=== PATIENT | female | born 1955 | race Caucasian/White ===

== ENCOUNTER 2016-09-29 08:37 | Outpatient (CLI) | payer BC, OTHER | END 2016-09-29 08:38 | DX: Z00.00 Encounter for general adult medical examination without abnormal findings (principal); E55.9 Vitamin D deficiency, unspecified; Z79.899 Other long term (current) drug therapy ==

== ENCOUNTER 2017-03-12 12:06 | Outpatient (CLI) | payer BC, OTHER ==
--- NOTE | 2017-03-15 12:38 | MRI Report ---
EXAM: RIGHT KNEE MRI WITHOUT CONTRAST EXAM DATE: 03/12/2017 01:08 PM. CLINICAL HISTORY: Right knee pain. COMPARISON: None. TECHNIQUE: Multiplanar, multisequence T1-weighted and fluid-sensitive sequences of the knee without c ontrast. Other: None. FINDINGS: Bones and articular cartilage: Tiny marginal osteophytes of the femoral condyles, lateral tibial plat eau, and patella. Marrow edema at the medial femoral condyle. There is an approximately 1.1 x 0.5 cm full-thickness articular cartilage defect at the central weightbearing aspect of the medial femoral c ondyle. There is grade 2 chondromalacia at the medial tibial plateau. Grade 2 chondromalacia at the l ateral compartment. Grade 3-4 chondromalacia at the medial ridge and medial facet of patella. Marrow edema at the lateral patellar facet. Grade 2 chondromalacia femoral trochlea. No subluxations. There is a 1.3 x 1.5 x 1 cm lobular intramedullary lesion at the medial aspect of the distal femoral metaph ysis. The lesion is mostly hyperintense on the T2-weighted images and mostly hypointense on the T1-we ighted images. Centrally, there are punctate hypointense foci. No surrounding marrow edema. Medial Meniscus: There is a vertically oriented radial oblique tear at the lateral aspect of the post erior horn. Lateral Meniscus: The lateral meniscus is intact. Cruciate Ligaments: The anterior and posterior cruciate ligaments are intact. Collateral Ligaments: The medial collateral and lateral collateral ligamentous structures are intact. Tendons: The quadriceps, patellar, semimembranosus, and popliteus tendons are unremarkable. Musculature: No edema or fatty atrophy. Other: Small joint effusion. Small Marie's cyst, which appears partially ruptured. There is an approx imately 1.2 x 1 x 0.6 cm loose body within the posterior lateral aspect of the medial joint compartme nt. The medial and lateral retinacula are intact. The subcutaneous tissues and fat pads are unremark able. IMPRESSION: 1. Tricompartmental chondromalacia. There is a full-thickness articular cartilage defect at the centr al weightbearing aspect of the medial femoral condyle. Marrow edema medial femoral condyle, which may represent stress reaction or bone contusion. 2. Vertically oriented radial oblique tear at the lateral aspect of the posterior horn. 3. Small joint effusion and Marie's cyst, which is partially ruptured. 4. A 1.2 x 1 x 0.6 cm loose body within the posterior lateral aspect of the medial joint compartment. [facility] MUSCULOSKELETAL RADIOLOGY SECTION Referring Provider Line: [phone] SITE ID: [id number]
== END 2017-03-12 12:07 | disposition home or self-care (01) ==
LOC: DI 12:06
PROVIDERS: ATTEND Physician Assistant Medical
DX: M94.261 Chondromalacia, right knee (principal); S83.241A Other tear of medial meniscus, current injury, right knee, initial encounter; M66.0 Rupture of popliteal cyst; M25.461 Effusion, right knee; M23.41 Loose body in knee, right knee

== ENCOUNTER 2017-05-12 08:26 | Outpatient (CLI) | payer BC, OTHER ==
--- NOTE | 2017-05-14 08:31 | Mammography Report ---
BILATERAL DIGITAL SCREENING MAMMOGRAM: 05/12/2017 CLINICAL INDICATION: A 62-year-old for screening. COMPARISON: 04/2016, 04/2015, 02/2014, 02/2013, 02/2012, 02/2011, 03/2010. TECHNIQUE: Routine CC and MLO projections were obtained of the breasts. FINDINGS: Parenchymal tissue within the breasts is predominantly fatty replaced. There are no dominant masses, suspicious microcalcifications, or secondary signs of malignancy. In comparison to the previous studies, there are no significant changes. IMPRESSION: NO MAMMOGRAPHIC EVIDENCE OF MALIGNANCY. NO SIGNIFICANT INTERVAL CHANGES. RECOMMENDATION: Screening mammography is recommended annually. BIRADS category 1 - negative. STANDARD QUALIFYING STATEMENTS 1. This examination was reviewed with the aid of Computed Aided Detection (CAD). 2. A negative x-ray report should not delay biopsy if a dominant or clinically suspicious mass is present. More than 5% of cancers are not identified by x-ray. 3. Dense breasts may obscure an underlying neoplasm. zoey 05/15/17 TD: 05/13/2017 21:07 WANDA
== END 2017-05-12 08:27 | disposition home or self-care (01) ==
LOC: DI 08:26
PROVIDERS: ATTEND Physician Assistant Medical
DX: Z12.31 Encounter for screening mammogram for malignant neoplasm of breast (principal)
CPT/HCPCS: 77067

== ENCOUNTER 2017-10-14 08:00 | Outpatient (CLI) | payer BC, OTHER ==
[2017-10-14 13:47] LABS: BASOPHILS % (AUTO) 0.8 %; EOSINOPHILS # (AUTO) 0.1 10^3/uL (0.0-0.7); EOSINOPHILS % (AUTO) 2.7 %; HGB - HEMOGLOBIN 13.3 g/dL (12.0-16.0); LYMPHOCYTES # (AUTO) 1.5 10^3/uL (1.5-3.5); LYMPHOCYTES % (AUTO) 29.9 %; MEAN CORPUSCULAR HEMOGLOBIN 32.2 pg (27.0-31.0); MEAN CORPUSCULAR HGB CONC 33.7 g/dL (32.0-36.0); MEAN CORPUSCULAR VOLUME 95.6 fL (81.0-99.0); MEAN PLATELET VOLUME 8.6 fL (7.9-10.8); MONOCYTES # (AUTO) 0.4 10^3/uL (0.0-1.0); MONOCYTES % (AUTO) 8.9 %; NEUTROPHILS # (AUTO) 2.9 10^3/uL (1.5-6.6); NEUTROPHILS % (AUTO) 57.7 %; PLT - PLATELET COUNT 316 10^3/uL (130-450); RED BLOOD COUNT 4.14 10^6/uL (4.20-5.40); RED CELL DISTRIBUTION WIDTH 12.7 % (12.0-15.0)
[2017-10-14 13:52] LABS: ALBUMIN 4.1 g/dL (3.2-5.5); ALBUMIN/GLOBULIN RATIO 1.4 (1.0-2.2); ALKALINE PHOSPHATASE 52 IU/L (42-121); ALT ALANINE AMINOTRANSFERASE 14 IU/L (10-60); AST ASPARTATE AMINOTRANSFERASE 19 IU/L (10-42); BILIRUBIN,TOTAL 0.8 mg/dL (0.2-1.0); BUN - BLOOD UREA NITROGEN 11 mg/dL (6-20); CALCIUM 8.7 mg/dL (8.5-10.3); CARBON DIOXIDE - CO2 23 mmol/L (21-32); CHLORIDE 105 mmol/L (101-111); CHOL/HDL RATIO 4.3 (<4.4); CHOLESTEROL 234 mg/dL; CREATININE 0.6 mg/dL (0.4-1.0); GFR - MDRD 101 (>89); GLUCOSE 97 mg/dL (70-100); HDL CHOLESTEROL 55 mg/dL; LDL CHOLESTEROL,CALCULATED 157 mg/dL; LDL/HDL RATIO 2.9 (<4.4); SODIUM 135 mmol/L (135-145); VLDL CHOLESTEROL 22 mg/dL
[2017-10-15 18:57] LABS: HEPATITIS C ANTIBODY NON-REACTIVE (NON-REACTIVE)
== END 2017-10-14 08:01 | disposition home or self-care (01) ==
LOC: LAB.N 08:00
PROVIDERS: ATTEND Physician Assistant Medical
DX: E55.9 Vitamin D deficiency, unspecified (principal); Z79.899 Other long term (current) drug therapy; Z13.818 Encounter for screening for other digestive system disorders; Z00.00 Encounter for general adult medical examination without abnormal findings; E78.2 Mixed hyperlipidemia
CPT/HCPCS: 36415; 80053; 80061; 82306; 83721; 84443; 85025; 86803

== ENCOUNTER 2018-05-20 14:49 | Outpatient (CLI) | payer BC, OTHER ==
--- NOTE | 2018-05-23 09:34 | DEXA Report ---
Reason: POSTMENOPAUSAL Procedure Date: 05/20/2018 Accession Number: [id number] / [id number] Procedure: DEX - Dexa Spine and/or Hip CPT Code: FULL RESULT: EXAM: Dexa Spine and/or Hip DATE: 05/20/2018 3:35 PM CLINICAL HISTORY: POSTMENOPAUSAL TECHNIQUE: Dual energy x-ray absorptiometry (DXA) was performed on a [employer] System. Regions measured are the AP Spine, femoral neck, and if needed forearm. COMPARISON: None. In accordance with the International Society for Clinical Densitometry (ISCD) guidelines, data from previous exams may be reanalyzed using current recommendations and techniques. This is done to allow a more accurate basis for comparison with the current study. FINDINGS: The data for the lumbar spine is as follows: BMD (g/cm/cm) T-SCORE Z-SCORE REGION L1 1.037 -0.8 0.0 L2 0.993 -1.7 -1.0 L3 1.027 -1.4 -0.7 L4 1.077 -1.0 -0.3 TOTAL 1.037 -1.2 -0.5 NOTE: All evaluable vertebrae are used for classification The data for the hip is as follows: BMD (g/cm/cm) T-SCORE Z-SCORE REGION Neck 0.979 -0.4 0.5 TOTAL 1.006 0.0 0.6 NOTE: The femoral neck or total proximal femur, whichever is lowest, is used for classification. IMPRESSION: THE WHO CLASSIFICATION BASED ON THE INTERNATIONAL REFERENCE STANDARD IS OSTEOPENIA. THE FRACTURE RISK IS INCREASED. RECOMMENDATION: Patients with diagnosis of osteoporosis or osteopenia should have regular bone mineral density assessment. For those eligible for Medicare, routine testing is allowed once every 2 years. Testing frequency can be increased for patients who have rapidly progressing disease or for those who are receiving medical therapy to restore bone mass. COMMENT: World Health Organization (WHO) definitions for osteoporosis and osteopenia: NORMAL BMD: T-score at -1.0 or higher, fracture risk is low OSTEOPENIA BMD: T-score between -1.0 and -2.5, fracture risk is increased. OSTEOPOROSIS BMD: T-score at -2.5 or lower, fracture risk is high. National Osteoporosis Foundation recommends: 1. Obtain adequate dietary calcium (at least 1200 mg per day) and vitamin D (400-800 international units per day). 2. Participate, as appropriate, in regular weightbearing and muscle-strengthening exercise. 3. Avoid tobacco use and reduce alcohol and caffeine intake. 4. For more detailed information see the website at www.NOF.org.
== END 2018-05-20 14:50 | disposition home or self-care (01) ==
LOC: DI 14:49
PROVIDERS: ATTEND Physician Assistant Medical
DX: M85.88 Other specified disorders of bone density and structure, other site (principal)
CPT/HCPCS: 77080

== ENCOUNTER 2018-05-20 14:51 | Outpatient (CLI) | payer BC, OTHER ==
--- NOTE | 2018-05-23 08:21 | Mammography Report ---
Reason: MAMMORGRAM,SCREENING Procedure Date: 05/20/2018 Accession Number: [id number] / [id number] Procedure: DIMAS - Screening Mammo w/Clarence CPT Code: FULL RESULT: EXAM: Screening Mammo w/Clarence DATE: 05/20/2018 3:43 PM CLINICAL HISTORY: Screening encounter. No reported risk factors. TECHNIQUE: Bilateral CC and MLO views were obtained. A left laterally exaggerated view was obtained. COMPARISON: 05/12/2017 through 03/15/2014. FINDINGS: The breasts demonstrate diffuse fatty replacement bilaterally. No suspicious masses, clustered microcalcifications, or regions of architectural distortion are identified. IMPRESSION: Negative examination RECOMMENDATION: Routine annual screening unless otherwise clinically indicated. BIRADS CATEGORY 1: Negative STANDARD QUALIFYING STATEMENTS: 1. This examination was not reviewed with the aid of Computer-Aided Detection (CAD). 2. A negative or benign imaging report should not preclude biopsy if clinically suspicious findings are present. 3. Dense breasts may obscure an underlying neoplasm. 4. This examination was reviewed with the aid of 3D breast imaging (tomosynthesis).
== END 2018-05-20 14:52 | disposition home or self-care (01) ==
LOC: DI 14:51
PROVIDERS: ATTEND Physician Assistant Medical
DX: Z12.31 Encounter for screening mammogram for malignant neoplasm of breast (principal)
CPT/HCPCS: 77063; 77067

== ENCOUNTER 2018-06-28 08:00 | Outpatient (CLI) | payer BC, OTHER ==
[2018-06-28 13:20] LABS: CHOL/HDL RATIO 4.8 (<4.4); CHOLESTEROL 257 mg/dL; HDL CHOLESTEROL 54 mg/dL; LDL CHOLESTEROL,CALCULATED 175 mg/dL; LDL/HDL RATIO 3.2 (<4.4); VLDL CHOLESTEROL 28 mg/dL
== END 2018-06-28 23:59 | disposition home or self-care (01) ==
LOC: LAB.R 08:00
PROVIDERS: ATTEND Physician Assistant Medical
DX: E78.2 Mixed hyperlipidemia (principal); Z79.899 Other long term (current) drug therapy
CPT/HCPCS: 80061; 83721

== ENCOUNTER 2018-10-03 08:00 | Outpatient (CLI) | payer BC, OTHER | END 2018-10-03 23:59 | disposition home or self-care (01) | LOC: LAB.R 08:00 | PROVIDERS: ATTEND Family Medicine | DX: N39.0 Urinary tract infection, site not specified (principal) | CPT/HCPCS: 87086; 87181 ==

== ENCOUNTER 2019-06-30 07:53 | Outpatient (CLI) | payer MEDICARE, BC, OTHER ==
--- NOTE | 2019-07-11 13:46 | Mammography Report ---
Reason: ROUTINE MAMMO Procedure Date: 06/30/2019 Accession Number: [id number] / [id number] Procedure: DIMAS - Screening Mammo w/Clarence CPT Code: Final Report FULL RESULT: EXAM: Screening Mammo w/Clarence DATE: 06/30/2019 9:00 AM CLINICAL HISTORY: Screening encounter. History of early menses. TECHNIQUE: (B) - Bilateral CC and MLO views were obtained. COMPARISON: 05/12/2018 through 04/21/2010. PARENCHYMAL PATTERN: (F) - The breast(s) demonstrate(s) diffuse fatty replacement. FINDINGS: There are no suspicious masses, calcifications, or areas of distortion. IMPRESSION: Negative examination. BI-RADS category 1. RECOMMENDATION: (ANNUAL) - Recommend routine annual screening mammography. BI-RADS CATEGORY: (1) - Negative. STANDARD QUALIFYING STATEMENTS: 1. This examination was not reviewed with the aid of Computer-Aided Detection (CAD). 2. A negative or benign imaging report should not preclude biopsy if clinically suspicious findings are present. 3. Dense breasts may obscure an underlying neoplasm. 4. This examination was reviewed with the aid of 3D breast imaging (tomosynthesis).
== END 2019-06-30 07:54 | disposition home or self-care (01) ==
LOC: DI 07:53
DX: Z12.31 Encounter for screening mammogram for malignant neoplasm of breast (principal)
CPT/HCPCS: 77063; 77067

== ENCOUNTER 2019-06-30 07:54 | Outpatient (CLI) | payer MEDICARE, BC, OTHER ==
--- NOTE | 2019-07-11 12:07 | DEXA Report ---
Reason: OSTEOPENIA Procedure Date: 06/30/2019 Accession Number: [id number] / [id number] Procedure: DEX - Dexa Spine and/or Hip CPT Code: Final Report FULL RESULT: EXAM: Dexa Spine and/or Hip DATE: 06/30/2019 8:33 AM CLINICAL HISTORY: OSTEOPENIA TECHNIQUE: Dual energy x-ray absorptiometry (DXA) was performed on a [employer] System. Regions measured are the AP Spine, femoral neck, and if needed forearm. COMPARISON: 05/12/2018. In accordance with the International Society for Clinical Densitometry (ISCD) guidelines, data from previous exams may be reanalyzed using current recommendations and techniques. This is done to allow a more accurate basis for comparison with the current study. FINDINGS: The data for the lumbar spine is as follows: BMD (g/cm/cm) T-SCORE Z-SCORE REGION L1 0.988 -1.2 -0.4 L2 0.930 -2.2 -1.4 L3 1.019 -1.5 -0.7 L4 0.937 -2.2 -1.4 TOTAL 0.966 -1.8 -1.0 NOTE: All evaluable vertebrae are used for classification The data for the hip is as follows: BMD (g/cm/cm) T-SCORE Z-SCORE REGION Neck 0.940 -0.7 0.3 TOTAL 1.015 0.1 0.7 NOTE: The femoral neck or total proximal femur, whichever is lowest, is used for classification. DXA RESULTS SUMMARY: Spine SCAN DATE AGE BMD CHANGE VS CHANGE VS PREVIOUS PREVIOUS % 5/30/2019 [age] 0.960 -0.078* -7.5* 05/20/2018 64.1 1.038 * Denotes significant change at the 95% confidence level. Denotes dissimilar scan types or analysis methods. DXA RESULTS SUMMARY: Hip SCAN DATE AGE BMD CHANGE VS CHANGE VS PREVIOUS PREVIOUS % 5/30/2019 65.2 1.015 0.009 0.9 05/20/2018 63.1 1.006 * Denotes significant change at the 95% confidence level. Denotes dissimilar scan types or analysis methods. IMPRESSION: THE WHO CLASSIFICATION BASED ON THE INTERNATIONAL REFERENCE STANDARD IS OSTEOPENIA. THE FRACTURE RISK IS INCREASED. Interval decrease in bone density in the lumbar spine is statistically significant. RECOMMENDATION: Patients with diagnosis of osteoporosis or osteopenia should have regular bone mineral density assessment. For those eligible for Medicare, routine testing is allowed once every 2 years. Testing frequency can be increased for patients who have rapidly progressing disease or for those who are receiving medical therapy to restore bone mass. COMMENT: World Health Organization (WHO) definitions for osteoporosis and osteopenia: NORMAL BMD: T-score at -1.0 or higher, fracture risk is low OSTEOPENIA BMD: T-score between -1.0 and -2.5, fracture risk is increased. OSTEOPOROSIS BMD: T-score at -2.5 or lower, fracture risk is high. National Osteoporosis Foundation recommends: 1. Obtain adequate dietary calcium (at least 1200 mg per day) and vitamin D (400-800 international units per day). 2. Participate, as appropriate, in regular weightbearing and muscle-strengthening exercise. 3. Avoid tobacco use and reduce alcohol and caffeine intake. 4. For more detailed information see the website at www.NOF.org.
== END 2019-06-30 07:55 | disposition home or self-care (01) ==
LOC: DI 07:54
PROVIDERS: ATTEND Family Medicine
DX: M85.88 Other specified disorders of bone density and structure, other site (principal)
CPT/HCPCS: 77080

== ENCOUNTER 2019-07-03 08:53 | Outpatient (CLI) | payer MEDICARE, BC, OTHER ==
[2019-07-03 11:44] LABS: BASOPHILS % (AUTO) 0.7 %; EOSINOPHILS # (AUTO) 0.1 10^3/uL (0.0-0.7); EOSINOPHILS % (AUTO) 2.7 %; HGB - HEMOGLOBIN 13.3 g/dL (12.0-16.0); LYMPHOCYTES # (AUTO) 1.4 10^3/uL (1.5-3.5); LYMPHOCYTES % (AUTO) 32.8 %; MEAN CORPUSCULAR HGB CONC 32.6 g/dL (32.0-36.0); MEAN CORPUSCULAR VOLUME 98.1 fL (81.0-99.0); MONOCYTES # (AUTO) 0.3 10^3/uL (0.0-1.0); MONOCYTES % (AUTO) 7.3 %; NEUTROPHILS # (AUTO) 2.5 10^3/uL (1.5-6.6); NEUTROPHILS % (AUTO) 56.3 %; PLT - PLATELET COUNT 356 10^3/uL (130-450); RED BLOOD COUNT 4.16 10^6/uL (4.20-5.40); RED CELL DISTRIBUTION WIDTH 13.1 % (12.0-15.0); WHITE BLOOD COUNT 4.4 x10^3/uL (4.8-10.8)
[2019-07-03 12:28] LABS: ALBUMIN 4.1 g/dL (3.2-5.5); ALBUMIN/GLOBULIN RATIO 1.3 (1.0-2.2); ALKALINE PHOSPHATASE 50 IU/L (42-121); ALT ALANINE AMINOTRANSFERASE 17 IU/L (10-60); AST ASPARTATE AMINOTRANSFERASE 23 IU/L (10-42); BILIRUBIN,TOTAL 0.6 mg/dL (0.2-1.0); BUN - BLOOD UREA NITROGEN 13 mg/dL (6-20); CALCIUM 8.9 mg/dL (8.5-10.3); CARBON DIOXIDE - CO2 26 mmol/L (21-32); CHLORIDE 105 mmol/L (101-111); CHOL/HDL RATIO 3.2 (<4.4); CHOLESTEROL 240 mg/dL; CREATININE 0.6 mg/dL (0.4-1.0); GFR - MDRD 100 (>89); GLUCOSE 95 mg/dL (70-100); HDL CHOLESTEROL 74 mg/dL; LDL CHOLESTEROL,CALCULATED 153 mg/dL; LDL/HDL RATIO 2.1 (<4.4); SODIUM 138 mmol/L (135-145); TOTAL PROTEIN 7.3 g/dL (6.7-8.2); VLDL CHOLESTEROL 13 mg/dL
== END 2019-07-03 23:59 | disposition home or self-care (01) ==
LOC: LAB.N 08:53
PROVIDERS: ATTEND Family Medicine
DX: E55.9 Vitamin D deficiency, unspecified (principal); M85.80 Other specified disorders of bone density and structure, unspecified site; E78.2 Mixed hyperlipidemia; M17.9 Osteoarthritis of knee, unspecified
CPT/HCPCS: 36415; 80053; 80061; 83721; 84443; 85025

== ENCOUNTER 2020-06-14 10:45 | Emergency (ER) | payer MEDICARE, BC, OTHER ==
--- NOTE | 2020-06-14 13:24 | ED Physician Documentation ---
PD HPI HEADACHE - Stated complaint Stated Complaint: HEAD PX - Chief complaint Chief Complaint: Neuro - History obtained from History obtained from: Patient - History of Present Illness Timing - onset: Today Timing - onset during: Light activity (was sitting eating breakfast and had onset left temporal area headache. Had had mild bump on forehead yesterday when struck forehead on tailgate of car(?). No pain at that time. NO recent sinus drainage. NO focal weaknesses. NO visual changes. NO nausea.) Timing - details: Abrupt onset, Still present Worst headache ever?: No: Worst headache ever? Location: Left Quality: Throbbing, Aching Associated symptoms: No: Fever, Stiff neck, Nausea, Eye pain, Vision changes Improved by: No: Dark room Worsened by: No: Light, Noise Contributing factors: Trauma (bumped forehead lightly yesterday). No: Anticoagulated, Possible carbon monoxide, Hypertension, Recent illness Similar symptoms before: Has not had sx before Review of Systems Constitutional: denies: Fever, Chills Eyes: denies: Decreased vision, Photophobia Nose: denies: Rhinorrhea / runny nose, Congestion Throat: denies: Sore throat Respiratory: denies: Cough GI: reports: Nausea. 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 HEENT: Tonsil/Adenoidectomy - Allergies Allergies/Adverse Reactions: Allergies Allergy/AdvReac Type Severity Reaction Status Date / Time chlorhexidine gluconate * Allergy Rash Verified 06/14/20 10:48 [From Jaymie] PD ED PE NORMAL - Vitals Vital signs reviewed: Yes - General General: Alert and oriented X 3, No acute distress, Well developed/nourished - HEENT HEENT: PERRL, EOMI, Ears normal, Moist mucous membranes, Pharynx benign - Neck Neck: Supple, no meningeal sign, No bony TTP, No adenopathy - Cardiac Cardiac: RRR, No murmur - Respiratory Respiratory: Clear bilaterally - Derm Derm: Normal color, Warm and dry - Neuro Neuro: Alert and oriented X 3, No motor deficit, Normal speech Eye Opening: Spontaneous Motor: Obeys Commands Verbal: Oriented GCS Score: 15 Results - Vitals Vitals: Vital Signs - 24 hr 06/14/20 06/14/20 10:48 14:50 Temperature 36.8 C 36.9 C Heart Rate 64 60 Respiratory 18 20 Rate Blood Pressure 156/88 H 158/91 H O2 Saturation 100 100 Oxygen O2 Source Room air - Labs Labs: Laboratory Tests 06/14/20 06/14/20 06/14/20 14:03 14:03 14:03 WBC 6.7 RBC 4.29 Hgb 13.6 Hct 42.3 MCV 98.6 MCH 31.7 H MCHC 32.2 RDW 12.2 Plt Count 322 MPV 9.3 Neut # (Auto) 4.4 Lymph # (Auto) 1.7 [place] # (Auto) 0.3 Eos # (Auto) 0.1 Baso # (Auto) 0.0 Absolute Nucleated RBC 0.00 Nucleated RBC % 0.0 ESR 13 Sodium 137 Potassium 3.6 Chloride 102 Carbon Dioxide 24 Anion Gap 11.0 BUN 15 Creatinine 0.6 Estimated GFR (MDRD) 100 Glucose 90 Calcium 9.0 - Rads (name of study) head CT Radiology: Prelim report reviewed (no acute process), See rad report PD MEDICAL DECISION MAKING - ED course Complexity details: considered differential (had struck head mildly the day prior, and now left headache this morning. COnsider mild concussive, sinus pressure, bleed, or coincidental inflammatory. No history of migraines. ), d/w patient Departure - Departure Disposition: Home, Self Care Clinical Impression: Left-sided headache Head contusion Qualifiers: Encounter type: initial encounter Contusion of head detail: scalp Qualified Code(s): S00.03XA - Contusion of scalp, initial encounter Condition: Stable Record reviewed to determine appropriate education?: Yes Instructions: ED Cephalgia Unspecified Follow-Up: Jaguar Mckinnon MD [Primary Care Provider] - Comments: Your head CT is normal without any signs of bleeding, skull fracture, swelling or masses. Your blood count and inflammation markers are normal to without any signs of a obvious inflammatory immune cause. This may be a mild postconcussive headache from the bump yesterday. Otherwise it may be functional headache or sinus. I would suggest using some anti-inflammatory such as ibuprofen or naproxen to 3 times daily for the next several days and add Tylenol if needed for pains. Recheck if not improved over the next several days and return if other symptoms develop with it. Discharge Date/Time: 06/14/20 14:55
[2020-06-14] MEDS ORDERED: ACETAMINOPHEN 325 MG TABLET PO STA (13:50)
[2020-06-14] MEDS ORDERED: IBUPROFEN 600 MG TABLET PO STA (13:50)
[2020-06-14 14:12] LABS: BASOPHILS % (AUTO) 0.5 %; EOSINOPHILS # (AUTO) 0.1 10^3/uL (0.0-0.7); EOSINOPHILS % (AUTO) 1.7 %; HGB - HEMOGLOBIN 13.6 g/dL (12.0-16.0); LYMPHOCYTES # (AUTO) 1.7 10^3/uL (1.5-3.5); LYMPHOCYTES % (AUTO) 26.2 %; MEAN CORPUSCULAR HEMOGLOBIN 31.7 pg (27.0-31.0); MEAN CORPUSCULAR HGB CONC 32.2 g/dL (32.0-36.0); MEAN CORPUSCULAR VOLUME 98.6 fL (81.0-99.0); MEAN PLATELET VOLUME 9.3 fL (7.9-10.8); MONOCYTES # (AUTO) 0.3 10^3/uL (0.0-1.0); MONOCYTES % (AUTO) 5.1 %; NEUTROPHILS # (AUTO) 4.4 10^3/uL (1.5-6.6); NEUTROPHILS % (AUTO) 66.3 %; PLT - PLATELET COUNT 322 10^3/uL (130-450); RED BLOOD COUNT 4.29 10^6/uL (4.20-5.40); RED CELL DISTRIBUTION WIDTH 12.2 % (12.0-15.0); WHITE BLOOD COUNT 6.7 x10^3/uL (4.8-10.8)
[2020-06-14 14:19] LABS: CREATININE 0.6 mg/dL (0.4-1.0)
--- NOTE | 2020-06-14 14:38 | CT Report ---
PROCEDURE: HEAD WO INDICATIONS: left headache onset today TECHNIQUE: Noncontrast 4.5 mm thick angled axial sections acquired from the foramen magnum to the vertex. For r adiation dose reduction, the following was used: automated exposure control, adjustment of mA and/or kV according to patient size. COMPARISON: None. FINDINGS: Image quality: Excellent. CSF spaces: Basal cisterns are patent. No extra-axial fluid collections. Ventricles are normal in size and shape. Brain: No midline shift. No intracranial masses or hemorrhage. Cristina-white matter interface is norm al. Skull and face: Calvarium and visualized facial bones are intact, without suspicious lesions. Sinuses: Visualized sinuses and mastoids are clear. IMPRESSION: No acute intracranial disease process. Reviewed by: Phyllis Colin MD, PhD on 06/14/2020 1:37 PM [facility] Approved by: Phyllis Colin MD, PhD on 06/14/2020 1:37 PM [facility] Station ID: [id number]
[2020-06-14 14:51] VITALS: BP 158/91
== END 2020-06-14 14:55 | disposition home or self-care (01) ==
LOC: ED 10:45
DX: S00.03XA Contusion of scalp, initial encounter (principal); Y29.XXXA Contact with blunt object, undetermined intent, initial encounter
CPT/HCPCS: 36415; 70450; 80048; 85025; 85651; 99284; A9270

== ENCOUNTER 2020-07-16 08:53 | Outpatient (CLI) | payer MEDICARE, BC, OTHER ==
--- NOTE | 2020-07-16 12:44 | Mammography Report ---
BILATERAL DIGITAL SCREENING MAMMOGRAM 3D/2D: 07/16/2020 CLINICAL: Routine screening. Comparison is made to exams dated: 06/30/2019 mammogram, 05/20/2018 mammogram, 05/12/2017 mammogram, 1 07/14/2015 mammogram, 05/08/2015 mammogram, and 03/15/2014 mammogram - [facility]. The tissue of both breasts is predominantly fatty. There is a stable benign focal asymmetry in the right breast. No significant masses, calcifications, or other findings are seen in either breast. There has been no significant interval change. IMPRESSION: BENIGN There is no mammographic evidence of malignancy. A 1 year screening mammogram is recommended. This exam was interpreted at Station ID: [id number]. NOTE: For mammograms, a report in lay terms will be sent to the patient. Approximately 15% of breast malignancies will not be visualized mammographically. In the management of a palpable breast mass, a negative mammogram must not discourage biopsy of a clinically suspicious lesion. Electronically Signed By: Lakhwinder Pickens acr/penrad:07/16/2020 10:06:10 ACR BI-RADS Category 2: Benign Finding(s) 3342F PARENCHYMAL PATTERN: (F) - The breast(s) demonstrate(s) diffuse fatty replacement. BI-RADS CATEGORY: (2) - 2 RECOMMENDATION: (ANNUAL) - Recommend routine annual screening mammography. [id number] 1 year screening LATERALITY: (B)
== END 2020-07-16 08:54 | disposition home or self-care (01) ==
LOC: DI.N 08:53
DX: Z12.31 Encounter for screening mammogram for malignant neoplasm of breast (principal)

== ENCOUNTER 2020-07-29 08:00 | Outpatient (CLI) | payer MEDICARE, BC, OTHER ==
[2020-07-29 11:52] LABS: ALBUMIN 4.3 g/dL (3.2-5.5); ALBUMIN/GLOBULIN RATIO 1.4 (1.0-2.2); ALKALINE PHOSPHATASE 67 IU/L (42-121); ALT ALANINE AMINOTRANSFERASE 21 IU/L (10-60); AST ASPARTATE AMINOTRANSFERASE 24 IU/L (10-42); BILIRUBIN,TOTAL 0.8 mg/dL (0.2-1.0); BUN - BLOOD UREA NITROGEN 17 mg/dL (6-20); CALCIUM 9.1 mg/dL (8.5-10.3); CARBON DIOXIDE - CO2 23 mmol/L (21-32); CHLORIDE 104 mmol/L (101-111); CHOL/HDL RATIO 3.6 (<4.4); CHOLESTEROL 237 mg/dL; CREATININE 0.7 mg/dL (0.4-1.0); GFR - MDRD 84 (>89); GLUCOSE 100 mg/dL (70-100); HDL CHOLESTEROL 66 mg/dL; LDL CHOLESTEROL,CALCULATED 147 mg/dL; LDL/HDL RATIO 2.2 (<4.4); SODIUM 135 mmol/L (135-145); TOTAL PROTEIN 7.3 g/dL (6.7-8.2); TRIGLYCERIDES 119 mg/dL; VLDL CHOLESTEROL 24 mg/dL
[2020-07-29 12:01] LABS: THYROID STIMULATING HORMONE 6.95 uIU/mL (0.34-5.60)
[2020-07-29 12:04] LABS: BASOPHILS % (AUTO) 0.9 %; EOSINOPHILS # (AUTO) 0.1 10^3/uL (0.0-0.7); EOSINOPHILS % (AUTO) 2.4 %; HCT - HEMATOCRIT 41.5 % (37.0-47.0); HGB - HEMOGLOBIN 13.4 g/dL (12.0-16.0); LYMPHOCYTES # (AUTO) 1.7 10^3/uL (1.5-3.5); LYMPHOCYTES % (AUTO) 37.3 %; MEAN CORPUSCULAR HEMOGLOBIN 31.5 pg (27.0-31.0); MEAN CORPUSCULAR HGB CONC 32.3 g/dL (32.0-36.0); MEAN CORPUSCULAR VOLUME 97.4 fL (81.0-99.0); MEAN PLATELET VOLUME 10.3 fL (7.9-10.8); MONOCYTES # (AUTO) 0.5 10^3/uL (0.0-1.0); MONOCYTES % (AUTO) 11.3 %; NEUTROPHILS # (AUTO) 2.2 10^3/uL (1.5-6.6); NEUTROPHILS % (AUTO) 47.9 %; PLT - PLATELET COUNT 292 10^3/uL (130-450); RED BLOOD COUNT 4.26 10^6/uL (4.20-5.40); RED CELL DISTRIBUTION WIDTH 12.3 % (12.0-15.0); WHITE BLOOD COUNT 4.6 x10^3/uL (4.8-10.8)
[2020-07-29 12:46] LABS: FREE T4 (FREE THYROXINE) 0.85 ng/dL (0.58-1.64)
== END 2020-07-29 23:59 | disposition home or self-care (01) ==
LOC: LAB.WCP 08:00
PROVIDERS: ATTEND Family Medicine
DX: Z00.00 Encounter for general adult medical examination without abnormal findings (principal); E66.3 Overweight; M85.80 Other specified disorders of bone density and structure, unspecified site; E78.2 Mixed hyperlipidemia
CPT/HCPCS: 36415; 80053; 80061; 83721; 84439; 84443; 85025

== ENCOUNTER 2021-03-05 07:47 | Outpatient (CLI) | payer MEDICARE, BC, OTHER ==
--- NOTE | 2021-03-06 09:56 | Mammography Report ---
UNILATERAL LEFT DIGITAL DIAGNOSTIC MAMMOGRAM 3D/2D: 03/05/2021 CLINICAL: Palpable left axilla lump. Comparison is made to exams dated: 07/16/2020 mammogram, 06/30/2019 mammogram, 05/20/2018 mammogram, mammogram, 05/13/2016 mammogram, and 05/08/2015 mammogram - [facility]. T he tissue of left breast is predominantly fatty. No significant masses, calcifications, or other findings are seen in the breast. IMPRESSION: INCOMPLETE: NEEDS ADDITIONAL IMAGING EVALUATION No suspicious mammographic finding. No abnormality at the patient's palpable area of concern. Ultraso und will be performed of the region of concern. This exam was interpreted at Station ID: [id number]. NOTE: For mammograms, a report in lay terms will be sent to the patient. Approximately 15% of breast malignancies will not be visualized mammographically. In the management of a palpable breast mass, a negative mammogram must not discourage biopsy of a clinically suspicious lesion. Electronically Signed By: Lloyd Macias M.D. jr/:03/05/2021 08:57:18 ACR BI-RADS Category 0: Incomplete 3340F PARENCHYMAL PATTERN: (F) - The breast(s) demonstrate(s) diffuse fatty replacement. BI-RADS CATEGORY: (0) - 0 Ultrasound [id number] Immediate follow-up LATERALITY: (B)
--- NOTE | 2021-03-06 09:56 | Ultrasound Report ---
ULTRASOUND OF LEFT AXILLA: 03/05/2021 CLINICAL: Palpable left axilla lump. Pt. unable to relocate for ultrasound. Comparison is made to exams dated: 03/05/2021 mammogram, 07/16/2020 mammogram, 06/30/2019 mammogram, mammogram, 05/12/2017 mammogram, and 05/13/2016 mammogram - [facility]. Color flow and real-time ultrasound of the left axilla were performed. Cristina scale images of the vibha l-time examination were reviewed. No significant abnormalities were seen sonographically in the left axilla which the patient indicates is the area of reportedly palpable concern. IMPRESSION: NEGATIVE There is no sonographic evidence of malignancy in the left axillary region of concern. Return to annual mammogram screening schedule is recommended (07/17/2021 screening mammogram). This exam was interpreted at Station ID: [id number]. Electronically Signed By: Lloyd Macias M.D. jr/:03/05/2021 09:00:33 Ultrasound BI-RADS: 1 Negative BI-RADS CATEGORY: (1) - 1 Mammogram [id number] return to screening LATERALITY: (B)
== END 2021-03-05 07:48 | disposition home or self-care (01) ==
LOC: DI 07:47
PROVIDERS: ATTEND Physician Assistant Medical
DX: R22.9 Localized swelling, mass and lump, unspecified (principal); N63.32 Unspecified lump in axillary tail of the left breast

== ENCOUNTER 2021-08-12 14:51 | Outpatient (CLI) | payer MEDICARE, BC, OTHER ==
--- NOTE | 2021-08-14 11:00 | Mammography Report ---
BILATERAL DIGITAL SCREENING MAMMOGRAM 3D/2D: 08/12/2021 CLINICAL: Routine screening. Comparison is made to exams dated: 03/05/2021 ultrasound, 03/05/2021 mammogram, 07/16/2020 mammogram, 06/30/2019 mammogram, 05/20/2018 mammogram, and 05/12/2017 mammogram - [facility]. The tissue of both breasts is predominantly fatty. No significant masses, calcifications, or other findings are seen in either breast. There has been no significant interval change. IMPRESSION: NEGATIVE There is no mammographic evidence of malignancy. A 1 year screening mammogram is recommended. This exam was interpreted at Station ID: [id number]. NOTE: For mammograms, a report in lay terms will be sent to the patient. Approximately 15% of breast malignancies will not be visualized mammographically. In the management of a palpable breast mass, a negative mammogram must not discourage biopsy of a clinically suspicious lesion. Electronically Signed By: Jagdish Mcclelland M.D. ataleksandr/ava:08/13/2021 08:29:41 ACR BI-RADS Category 1: Negative 3341F PARENCHYMAL PATTERN: (F) - The breast(s) demonstrate(s) diffuse fatty replacement. BI-RADS CATEGORY: (1) - 1 RECOMMENDATION: (ANNUAL) - Recommend routine annual screening mammography. [id number] 1 year screening LATERALITY: (B)
== END 2021-08-12 14:52 | disposition home or self-care (01) ==
LOC: DI.N 14:51
PROVIDERS: ATTEND Family Medicine
DX: Z12.31 Encounter for screening mammogram for malignant neoplasm of breast (principal)

== ENCOUNTER 2022-08-14 12:51 | Outpatient (CLI) | payer MEDICARE, BC, OTHER ==
[2022-08-14 13:29] VITALS: BP 139/90
== END 2022-08-14 12:52 | disposition home or self-care (01) ==
LOC: MAC.MOP 12:51
PROVIDERS: ATTEND Family Medicine
DX: R00.2 Palpitations (principal)
CPT/HCPCS: 93242

== ENCOUNTER 2022-08-26 12:17 | Outpatient (CLI) | payer MEDICARE, BC, OTHER | END 2022-08-26 12:18 | disposition home or self-care (01) | LOC: DI 12:17 | PROVIDERS: ATTEND Family Medicine | DX: R00.2 Palpitations (principal); I51.7 Cardiomegaly | CPT/HCPCS: 93306 ==

== ENCOUNTER 2022-09-01 10:30 | Outpatient (CLI) | payer MEDICARE, BC, OTHER | END 2022-09-01 10:31 | disposition home or self-care (01) | LOC: MAC.INF 10:30 | PROVIDERS: ATTEND Family Medicine | DX: I47.1 Supraventricular tachycardia (principal); I49.1 Atrial premature depolarization; I49.3 Ventricular premature depolarization | CPT/HCPCS: 93244 ==

== ENCOUNTER 2022-11-25 08:18 | Outpatient (CLI) | payer MEDICARE, BC, OTHER ==
--- NOTE | 2022-11-25 10:13 | Mammography Report ---
BILATERAL DIGITAL SCREENING MAMMOGRAM 3D/2D: 11/25/2022 CLINICAL: Routine screening. Comparison is made to exams dated: 08/12/2021 mammogram, 03/05/2021 ultrasound, 03/05/2021 mammogram, 07/16/2020 mammogram, 06/30/2019 mammogram, and 05/20/2018 mammogram - [facility]. There are scattered areas of fibroglandular density in both breasts (category b / 25%-50% glandular t issue). No significant masses, calcifications, or other findings are seen in either breast. There has been no significant interval change. IMPRESSION: NEGATIVE There is no mammographic evidence of malignancy. A 1 year screening mammogram is recommended. Based on the Tyrer Cuzick model (a risk assessment model) the patients lifetime risk is 5.3% and her 10 year risk is 2.9%. According to the ACR, ACS, and NCCN guidelines, an annual breast MRI exam timo g with mammogram is recommended if the patients lifetime risk is 20% or greater. This exam was interpreted at Station ID: [id number]. NOTE: For mammograms, a report in lay terms will be sent to the patient. Approximately 15% of breast malignancies will not be visualized mammographically. In the management of a palpable breast mass, a negative mammogram must not discourage biopsy of a clinically suspicious lesion. Electronically Signed By: Jagdish silva/ava:11/25/2022 09:58:17 letter sent: No_Letter ACR BI-RADS Category 1: Negative 3341F PARENCHYMAL PATTERN: (A) - The breast(s) demonstrate(s) scattered fibroglandular densities. BI-RADS CATEGORY: (1) - 1 Mammogram [id number] 1 year screening LATERALITY: (B)
== END 2022-11-25 08:19 | disposition home or self-care (01) ==
LOC: DI.N 08:18
DX: Z12.31 Encounter for screening mammogram for malignant neoplasm of breast (principal)

== ENCOUNTER 2023-07-08 08:12 | Outpatient (CLI) | payer MEDICARE, BC, OTHER ==
--- NOTE | 2023-07-08 10:12 | DEXA Report ---
PROCEDURE: Dexa Spine and/or Hip INDICATIONS: POST MENOPAUSAL TECHNIQUE: Dual energy x-ray absorptiometry (DXA) was performed on a [facility]. Regions measur ed are the AP Spine, femoral neck, and if needed forearm. COMPARISON: 06/30/2019 FINDINGS: Lumbar Spine: Bone Mineral Density: 0.999 g/cm/cm,T score: -1.5. Since the most recent prior study, there has been a statistically significant increase in bone mineral density by 3.4 percent. Left Femoral Neck: Bone Mineral Density: 0.923 g/cm/cm, T score: -0.8. Left Hip: Bone Mineral Density: 0.964 g/cm/cm,T score: -0.3. Since the most recent prior study, there has been a statistically significant decrease in bone mineral density by 5.0 percent. (T score greater or equal to -1.0: NORMAL) (T score from -1.1 to -2.4: OSTEOPENIA) (T score less than or equal to -2.5 to: OSTEOPOROSIS) Impression: By WHO criteria, this patient has low bone density (osteopenia). Interval statistical increase in bone mineral density of the lumbar spine. Interval statistical decre ase in bone mineral density of the hip. Patients with diagnosis of osteoporosis or osteopenia should have regular bone mineral density assess ment. For those eligible for Medicare, routine testing is allowed once every 2 years. Testing frequ ency can be increased for patients who have rapidly progressing disease or for those who are receivin g medical therapy to restore bone mass. Reviewed by: Mohsen Temple MD on 07/08/2023 10:11 AM PST Approved by: Mohsen Temple MD on 07/08/2023 10:11 AM PST Station ID: [id number]
== END 2023-07-08 08:13 | disposition home or self-care (01) ==
LOC: DI 08:12
PROVIDERS: ATTEND Family Medicine
DX: M85.88 Other specified disorders of bone density and structure, other site (principal); Z78.0 Asymptomatic menopausal state

== ENCOUNTER 2023-07-13 09:33 | Outpatient (CLI) | payer MEDICARE, BC, OTHER ==
[2023-07-13 12:56] LABS: BASOPHILS % (AUTO) 0.6 %; EOSINOPHILS # (AUTO) 0.2 10^3/uL (0.0-0.7); EOSINOPHILS % (AUTO) 3.1 %; HCT - HEMATOCRIT 37.2 % (37.0-47.0); LYMPHOCYTES # (AUTO) 1.6 10^3/uL (1.5-3.5); LYMPHOCYTES % (AUTO) 28.5 %; MEAN CORPUSCULAR HGB CONC 32.3 g/dL (32.0-36.0); MEAN CORPUSCULAR VOLUME 96.1 fL (81.0-99.0); MEAN PLATELET VOLUME 10.1 fL (7.9-10.8); MONOCYTES # (AUTO) 0.3 10^3/uL (0.0-1.0); MONOCYTES % (AUTO) 5.9 %; NEUTROPHILS # (AUTO) 3.3 10^3/uL (1.5-6.6); NEUTROPHILS % (AUTO) 61.5 %; PLT - PLATELET COUNT 334 10^3/uL (130-450); RED BLOOD COUNT 3.87 10^6/uL (4.20-5.40); RED CELL DISTRIBUTION WIDTH 12.3 % (12.0-15.0); WHITE BLOOD COUNT 5.4 x10^3/uL (4.8-10.8)
[2023-07-13 13:14] LABS: ALBUMIN 4.2 g/dL (3.2-5.5); ALBUMIN/GLOBULIN RATIO 1.6 (1.0-2.2); ALKALINE PHOSPHATASE 61 IU/L (42-121); ALT ALANINE AMINOTRANSFERASE 13 IU/L (10-60); AST ASPARTATE AMINOTRANSFERASE 23 IU/L (10-42); BILIRUBIN,TOTAL 0.4 mg/dL (0.2-1.0); BUN - BLOOD UREA NITROGEN 13 mg/dL (6-20); CALCIUM 9.1 mg/dL (8.5-10.3); CARBON DIOXIDE - CO2 26 mmol/L (21-32); CHLORIDE 102 mmol/L (101-111); CHOL/HDL RATIO 3.2 (<4.4); CHOLESTEROL 200 mg/dL; CREATININE 0.7 mg/dL (0.6-1.3); GFR - MDRD 83 (>89); GLUCOSE 99 mg/dL (74-104); HDL CHOLESTEROL 62 mg/dL; LDL CHOLESTEROL,CALCULATED 121 mg/dL; POTASSIUM 3.7 mmol/L (3.5-4.5); SODIUM 133 mmol/L (135-145); TOTAL PROTEIN 6.8 g/dL (6.4-8.9); TRIGLYCERIDES 87 mg/dL (48-352); VLDL CHOLESTEROL 17 mg/dL
[2023-07-13 13:31] LABS: THYROID STIMULATING HORMONE 4.36 uIU/mL (0.34-5.60)
== END 2023-07-13 09:34 | disposition home or self-care (01) ==
LOC: LAB.N 09:33
PROVIDERS: ATTEND Family Medicine
DX: R03.0 Elevated blood-pressure reading, without diagnosis of hypertension (principal); M23.212 Derangement of anterior horn of medial meniscus due to old tear or injury, left knee; K21.9 Gastro-esophageal reflux disease without esophagitis; E66.3 Overweight; E55.9 Vitamin D deficiency, unspecified; M85.80 Other specified disorders of bone density and structure, unspecified site; E78.2 Mixed hyperlipidemia
CPT/HCPCS: 36415; 80053; 80061; 82306; 83721; 84443; 85025